=== PATIENT | male | born 1940 | race Caucasian/White ===

== ENCOUNTER 2018-10-10 09:23 | Inpatient (IN) | payer MEDICARE, OTHER ==
[~2018-10-10] VITALS: Ht 182.9 cm; Wt 122.5 kg
[2018-10-10 10:02] LABS: Basophils # (auto) 0.1 uL; Basophils % (auto) 0.5 % (0.0-2.0); Eosinophils # (auto) 0 uL; Hematocrit 42.5 % (41.0-53.0); Hemoglobin 14.3 g/dL (13.5-17.5); Lymphocytes # (auto) 1.8 uL; Lymphocytes % (auto) 12.7 % (10.0-50.0); Mean Corpuscular Hgb Conc. 33.7 g/dL (32.0-36.0); Mean Corpuscular Volume 86.2 fL (80.0-100.0); Monocytes # (auto) 0.8 uL; Monocytes % (auto) 5.7 % (0.0-12.0); Neutrophils # (auto) 11.6 uL; Neutrophils % (auto) 81.1 % (37.0-80.0); Platelet Count (auto) 166 10^3/uL (140-450); Red Blood Cells 4.93 10^6/uL (4.5-5.90); Red Cell Distribution Width 16.1 % (11.8-14.3); White Blood Cell 14.4 10^3/uL (4.4-10.8)
[2018-10-10] MEDS ORDERED: SODIUM CHLORIDE 0.9% 1,000 ML IV ONE ×2 (10:13→11:25)
[2018-10-10 10:24] LABS: INR 1.11 (0.9-1.15); Partial Thromboplastin Time 29.5 sec (23.64-32.05)
[2018-10-10 10:47] LABS: Albumin 3.2 g/dL (3.4-5.0); BUN/Creatinine Ratio 10.9; Calcium 8.8 mg/dL (8.5-10.1); Magnesium 1.6 mg/dL (1.6-2.6); Potassium 4.4 mmol/L (3.5-5.1)
[2018-10-10 10:50] LABS: Urine Bacteria NONE SEEN /hpf (None Seen); Urine Blood Negative /uL (Negative); Urine Specific Gravity 1.025 (1.001-1.035); Urine WBC 8 /hpf (0 - 3)
[2018-10-10 10:51] LABS: Bilirubin, Total 1.3 mg/dL (0.2-1.0)
[2018-10-10] MEDS ORDERED: SODIUM CHLORIDE 0.9% 500 ML IVB ONE (11:25)
[2018-10-10] MEDS ORDERED: HYDROmorphone HCL 2 MG/ML VL IV ONE (11:30)
[2018-10-10] MEDS ORDERED: PROMETHAZINE HCL 25 MG/ML 1ML IV PRN (11:30)
[2018-10-10] MEDS ORDERED: metroNIDAZOLE 500MG/100ML 100 ML IV ONE (11:30)
[2018-10-10] MEDS ORDERED: cefTRIAXone 1GM/50ML D5W 50 ML IV ONE ×2 (11:30→13:15)
[2018-10-10 12:28] LABS: Lactic Acid w/Reflex 2.4 mmol/L (0.4-2.0)
[2018-10-10] MEDS ORDERED: BENZOCAINE (DENTAL) 20 % SPRAY 60ML MT ONE (13:00)
[2018-10-10] MEDS ORDERED: MORPHINE SULF INJ 2 MG/ML SYRINGE 1ML IV PRN (13:15)
[2018-10-10] MEDS ORDERED: DEXTROSE (50%) 50ML SYRG IV PRN (13:15)
[2018-10-10] MEDS ORDERED: SODIUM CHLORIDE 0.9% 1,000 ML IV SCH (13:15)
[2018-10-10] MEDS ORDERED: NITROGLYCERIN 0.4 MG SL TAB SL PRN (13:15)
[2018-10-10] MEDS ORDERED: ONDANSETRON HCL 4 MG/2 ML VIAL IV PRN (13:15)
[2018-10-10] MEDS ORDERED: FAMOTIDINE (10MG/ML) 2ML VL IV ONE (14:00)
[2018-10-10] MEDS: metroNIDAZOLE 500MG/100ML 100 ML IV SCH ×2 (14:00→21:55)
--- NOTE | 2018-10-10 16:01 | NUR ---
Telemetry admit from ER ELLI GOMEZ admitted to Telemetry unit after SBAR received. Patient oriented to Ngozi Gregory, primary RN, unit, room, bed, and unit policies regarding patient care and visiting hours. Patient now on continuous telemetry monitoring, tele box # [id number] and telemetry reading on arrival to unit is . Patient weighed by bedscale and encouraged to call if they need something. All questions and concerns addressed, patient verbalized understanding. Note:
[2018-10-10] MEDS: ACCU-CHEK COMFORT CURVE STRIP VI SCH (16:44)
[2018-10-10] MEDS: SODIUM CHLORIDE 0.9% 1,000 ML IV SCH (16:44)
[2018-10-10 16:46] VITALS: BP 136/77
[2018-10-10 16:53] VITALS: BP 136/77
[2018-10-10] MEDS: InsuLIN REG 1unit/0.01ml Soln (100units/ml) SC SCH (16:57)
--- NOTE | 2018-10-10 18:00 | NUR ---
Attempted to place NG tube. Was unable to get pass resistance. Patient stated "Take this out, it not going to work." Educated patient on the need for the NG tube. Patient agreed to another attempt at a later time.
--- NOTE | 2018-10-10 19:59 | NUR ---
Opening Shift Note Assumed care of patient, awake and alert. No S/S of distress/SOB or pain. Instructed on POC and to call for assist PRN, will continue to monitor for changes Q1hr and PRN.
[2018-10-10] MEDS: HYDROmorphone HCL 2 MG/ML VL IV PRN (20:52)
[2018-10-10] MEDS: cefTRIAXone 1GM/50ML D5W 50 ML IV SCH (20:58)
--- NOTE | 2018-10-10 21:30 | NUR ---
Reattempted to place NG tube, not successful. Patient refuses any more tries.
[2018-10-10 21:42] VITALS: BP 142/78
[2018-10-10] MEDS: FAMOTIDINE (10MG/ML) 2ML VL IV SCH (21:55)
--- NOTE | 2018-10-10 22:00 | NUR ---
[facility] Hospitalist Spoke with Zoe Patel and informed her about the fail attempted of the NG tube. Hospitalist said leave it as is because patient refused any more tries.
[2018-10-11] MEDS: ACCU-CHEK COMFORT CURVE STRIP VI SCH ×5 (00:37→23:50)
[2018-10-11] MEDS: SODIUM CHLORIDE 0.9% 1,000 ML IV SCH ×2 (02:10→16:58)
[2018-10-11] MEDS: HYDROmorphone HCL 2 MG/ML VL IV PRN ×4 (02:33→22:57)
--- NOTE | 2018-10-11 02:35 | NUR ---
D/C RH IV. IV came off as the patient was sleeping.
[2018-10-11 05:00] VITALS: BP 144/66
[2018-10-11] MEDS: metroNIDAZOLE 500MG/100ML 100 ML IV SCH ×3 (05:34→21:37)
[2018-10-11] MEDS: InsuLIN REG 1unit/0.01ml Soln (100units/ml) SC SCH ×5 (05:47→23:50)
--- NOTE | 2018-10-11 05:50 | NUR ---
I ask patient if he will like to retry the NG tube, patient refused any NG further attempts.
[2018-10-11 07:23] LABS: Basophils # (auto) 0 uL; Basophils % (auto) 0.2 % (0.0-2.0); Eosinophils # (auto) 0.1 uL; Eosinophils % (auto) 0.7 % (0.0-7.0); Hematocrit 37.6 % (41.0-53.0); Hemoglobin 12.7 g/dL (13.5-17.5); Lymphocytes # (auto) 1.5 uL; Lymphocytes % (auto) 16.3 % (10.0-50.0); Mean Corpuscular Hemoglobin 29.7 pg (28.0-32.0); Mean Corpuscular Hgb Conc. 33.9 g/dL (32.0-36.0); Mean Corpuscular Volume 87.6 fL (80.0-100.0); Monocytes # (auto) 0.7 uL; Monocytes % (auto) 7.3 % (0.0-12.0); Neutrophils % (auto) 75.5 % (37.0-80.0); Platelet Count (auto) 130 10^3/uL (140-450); Red Blood Cells 4.29 10^6/uL (4.5-5.90); Red Cell Distribution Width 15.8 % (11.8-14.3); White Blood Cell 9.3 10^3/uL (4.4-10.8)
[2018-10-11 07:32] LABS: INR 1.1 (0.9-1.15)
[2018-10-11 07:37] LABS: Potassium 4.3 mmol/L (3.5-5.1)
[2018-10-11 07:42] LABS: Albumin 2.6 g/dL (3.4-5.0); BUN/Creatinine Ratio 14.1; Bilirubin, Total 0.8 mg/dL (0.2-1.0); Calcium 8.2 mg/dL (8.5-10.1); Total Protein 7.4 g/dL (6.4-8.2)
[2018-10-11] MEDS: FAMOTIDINE (10MG/ML) 2ML VL IV SCH ×2 (08:29→21:36)
[2018-10-11] MEDS: cefTRIAXone 1GM/50ML D5W 50 ML IV SCH ×2 (08:29→21:04)
[2018-10-11 09:00] VITALS: BP 122/74
[2018-10-11] MEDS ORDERED: BENZOCAINE (DENTAL) 20 % SPRAY 60ML MT ONE (12:30)
[2018-10-11 13:00] VITALS: BP 112/63
[2018-10-11] MEDS ORDERED: MAGNESIUM SULFATE 1GM/100ML 100 ML IV ONE (13:15)
--- NOTE | 2018-10-11 16:21 | NUR ---
Nasogastric tube insertion Patient educated on need for NG tube. All questions addressed. NGT inserted per MD order. Placement verified by aspiration of stomach contents, auscultation and chest xray.
--- NOTE | 2018-10-11 16:38 | NUR ---
NG tube placement confirmed. Patient placed on LCS per MD order.
[2018-10-11 17:00] VITALS: BP 146/61
[2018-10-11] MEDS ORDERED: D5W/SOD CHLO 0.9% 1,000 ML IV SCH (18:30)
[2018-10-11 21:57] VITALS: BP 139/57
[2018-10-12] MEDS: HYDROmorphone HCL 2 MG/ML VL IV PRN (01:43)
[2018-10-12 05:24] VITALS: BP 142/60
[2018-10-12] MEDS: InsuLIN REG 1unit/0.01ml Soln (100units/ml) SC SCH ×3 (05:44→17:42)
[2018-10-12] MEDS: metroNIDAZOLE 500MG/100ML 100 ML IV SCH ×3 (05:44→21:47)
[2018-10-12] MEDS: ACCU-CHEK COMFORT CURVE STRIP VI SCH ×3 (05:45→17:42)
[2018-10-12 07:14] LABS: Basophils # (auto) 0 uL; Basophils % (auto) 0.4 % (0.0-2.0); Eosinophils # (auto) 0.1 uL; Eosinophils % (auto) 1.2 % (0.0-7.0); Lymphocytes # (auto) 0.9 uL; Lymphocytes % (auto) 13.9 % (10.0-50.0); Mean Corpuscular Hemoglobin 29.9 pg (28.0-32.0); Mean Corpuscular Hgb Conc. 34.1 g/dL (32.0-36.0); Mean Corpuscular Volume 87.6 fL (80.0-100.0); Monocytes # (auto) 0.5 uL; Monocytes % (auto) 6.8 % (0.0-12.0); Neutrophils # (auto) 5.2 uL; Neutrophils % (auto) 77.7 % (37.0-80.0); Platelet Count (auto) 142 10^3/uL (140-450); Red Blood Cells 4.34 10^6/uL (4.5-5.90); Red Cell Distribution Width 15.6 % (11.8-14.3); White Blood Cell 6.7 10^3/uL (4.4-10.8)
[2018-10-12 07:18] LABS: Albumin 2.7 g/dL (3.4-5.0); Calcium 8.4 mg/dL (8.5-10.1); Magnesium 2.1 mg/dL (1.6-2.6); Potassium 4.9 mmol/L (3.5-5.1)
[2018-10-12 07:21] LABS: BUN/Creatinine Ratio 14.6; Bilirubin, Total 0.8 mg/dL (0.2-1.0); Total Protein 7.9 g/dL (6.4-8.2)
--- NOTE | 2018-10-12 08:00 | NUR ---
Opening Shift Note: Assumed care of patient, patient is asleep. No S/S of distress/SOB or pain. Bed in lowest locked position, side rails up x2, call light within reach. Will discuss POC with patient. Will continue to monitor for changes q1hr, and PRN.
[2018-10-12 08:30] VITALS: BP 124/62
[2018-10-12] MEDS: cefTRIAXone 1GM/50ML D5W 50 ML IV SCH ×2 (09:11→21:02)
[2018-10-12] MEDS: FAMOTIDINE (10MG/ML) 2ML VL IV SCH (09:12)
[2018-10-12 12:30] VITALS: BP 123/63
[2018-10-12] MEDS ORDERED: PANTOPRAZOLE 40 MG/10 ML VIAL INJ IV ONE (12:45)
--- NOTE | 2018-10-12 12:57 | NUR ---
Nutrition Assessment Notes please see attached link for complete assessment Est. Needs ABW 101 [id number] kcal (20-23 kcal/kg), 80-101 g protein (0.8-1.0 g/kg r/t elev T). Will continue to monitor pertinent labs and reassess nutrient need prn. Addendum: 10/12/18 at [address] Amended: Links added.
--- NOTE | 2018-10-12 15:15 | NUR ---
Paged Dr. Benites, instructed to page Dr. Viera. Paged Dr. Viera. Per doctor [facility], [place] NG tube. Patient is able to have ice chips.
--- NOTE | 2018-10-12 15:50 | NUR ---
NGT removal: NGT removed per MD order following explanation and instruction to patient. Patient verbalized understanding prior to removal. Patient tolerated well.
[2018-10-12 17:15] VITALS: BP 135/67
--- NOTE | 2018-10-12 17:45 | NUR ---
IV insertion: IV access obtained, via clean sterile technique by inserting 22 gauge catheter at right hand after 2 attempt. IV secured properly. No trauma to site. Patient tolerated well.
--- NOTE | 2018-10-12 18:02 | NUR ---
IV removal IV DC'd with clean sterile technique, catheter fully intact. Pressure dressing applied to site. Patient tolerated well.
[2018-10-12] MEDS: D5W/SOD CHLO 0.9% 1,000 ML IV SCH (18:08)
--- NOTE | 2018-10-12 20:00 | NUR ---
OPENING SHIFT NOTE: PATIENT IS RESTING IN BED. HE IS AO X4. HAS NO COMPLAINTS OF PAIN. HE IS AMBULATORY WITHOUT ASSISTANCE. HE IS TOLERATING ICE CHIPS WELL AFTER THE NG TUBE REMOVAL. BED IS LOCKED IN THE LOWEST POSITION WITH SIDE RAILS UP X 2. CALL LIGHT IS WITHIN REACH. WILL CONTINUE TO MONITOR.
[2018-10-12] MEDS: PANTOPRAZOLE 40 MG/10 ML VIAL INJ IV SCH (21:47)
[2018-10-12 21:51] VITALS: BP 138/67
[2018-10-13] MEDS: InsuLIN REG 1unit/0.01ml Soln (100units/ml) SC SCH ×2 (00:07→06:32)
[2018-10-13] MEDS: ACCU-CHEK COMFORT CURVE STRIP VI SCH ×2 (00:07→06:32)
--- NOTE | 2018-10-13 04:20 | NUR ---
PATIENT ASKED TO SPEAK WITH ME AND HE EXPLAINED TO ME THAT HE RICCARDO LIKE TO SEE THE DOCTOR TODAY. HE STATED "REGARDLESS IF I SEE THE DOCTOR OR NOT I WILL SIGN MY SELF OUT LATER TODAY". I REVIEWED HIS POTENTIAL DECISION WITH HIM AND HE CONFIRMS THAT GHE WILL SIGN AMA LATER TODAY IF NOT DISCHARGED. I NOTIFIED CHARGE NURSE OF HIS PENDING DECISION.
[2018-10-13 05:04] VITALS: BP 143/75
[2018-10-13] MEDS: D5W/SOD CHLO 0.9% 1,000 ML IV SCH (05:25)
[2018-10-13] MEDS: metroNIDAZOLE 500MG/100ML 100 ML IV SCH (06:00)
[2018-10-13 06:24] LABS: Basophils # (auto) 0 uL; Basophils % (auto) 0.5 % (0.0-2.0); Eosinophils # (auto) 0.3 uL; Eosinophils % (auto) 4.7 % (0.0-7.0); Hematocrit 38.7 % (41.0-53.0); Lymphocytes # (auto) 1.3 uL; Lymphocytes % (auto) 20.8 % (10.0-50.0); Mean Corpuscular Hemoglobin 29.4 pg (28.0-32.0); Mean Corpuscular Hgb Conc. 33.6 g/dL (32.0-36.0); Mean Corpuscular Volume 87.5 fL (80.0-100.0); Monocytes # (auto) 0.5 uL; Monocytes % (auto) 7.3 % (0.0-12.0); Neutrophils # (auto) 4.3 uL; Neutrophils % (auto) 66.7 % (37.0-80.0); Platelet Count (auto) 163 10^3/uL (140-450); Red Blood Cells 4.42 10^6/uL (4.5-5.90); Red Cell Distribution Width 15.6 % (11.8-14.3); White Blood Cell 6.4 10^3/uL (4.4-10.8)
[2018-10-13 06:49] LABS: Calcium 8.5 mg/dL (8.5-10.1); Potassium 4.1 mmol/L (3.5-5.1)
[2018-10-13 06:52] LABS: BUN/Creatinine Ratio 11.7; Phosphorus 2.6 mg/dL (2.5-4.90)
[2018-10-13 09:00] VITALS: BP 109/67
[2018-10-13] MEDS: cefTRIAXone 1GM/50ML D5W 50 ML IV SCH (09:00)
[2018-10-13] MEDS: PANTOPRAZOLE 40 MG/10 ML VIAL INJ IV SCH (10:00)
--- NOTE | 2018-10-13 10:30 | NUR ---
AMA Note ELLI GOMEZ states they want to leave the hospital Against Medical Advice (AMA). Patient encouraged to stay for further treatment/stabilization. Hospitalist to be informed. Patient advised of the risks and benefits of leaving AMA. Patient verbalized understanding. Patient encouraged to return to the ER if symptoms do not improve or worsen. IV dc'd to right hand, with canula intact. satellite project site monitor returned to ICU. Pt states that he has all personal belongings at time of discharge.
== END 2018-10-13 10:30 | disposition left against medical advice (07) | DRG 871 ==
LOC: ER 09:30 → TELE 09:31 → TELE-CENTR 15:52
PROVIDERS: ADMIT Nurse Practitioner Acute Care; ATTEND Internal Medicine
PROC: 0D9670Z Drainage of Stomach with Drainage Device, Via Natural or Artificial Opening (ICD-10-PCS; principal; 2018-10-11)
DX: A41.9 Sepsis, unspecified organism (principal); N17.0 Acute kidney failure with tubular necrosis; K63.1 Perforation of intestine (nontraumatic); E44.1 Mild protein-calorie malnutrition; I25.10 Atherosclerotic heart disease of native coronary artery without angina pectoris; E11.21 Type 2 diabetes mellitus with diabetic nephropathy; I71.4 Abdominal aortic aneurysm, without rupture; Z68.36 Body mass index [BMI] 36.0-36.9, adult; E78.5 Hyperlipidemia, unspecified; Z53.21 Procedure and treatment not carried out due to patient leaving prior to being seen by health care provider; K57.30 Diverticulosis of large intestine without perforation or abscess without bleeding; I10 Essential (primary) hypertension; J43.9 Emphysema, unspecified; N40.0 Benign prostatic hyperplasia without lower urinary tract symptoms; Z77.090 Contact with and (suspected) exposure to asbestos; Z85.828 Personal history of other malignant neoplasm of skin; Z95.5 Presence of coronary angioplasty implant and graft; Z79.84 Long term (current) use of oral hypoglycemic drugs
CPT/HCPCS: 36415; 71045; 71046; 74018; 74176; 80048; 80053; 81001; 82306; 82962; 83036; 83605; 83690; 83735; 84100; 84484; 85025; 85610; 85730; 86850; 86900; 86901; 87040; 93005; 93306; 94761; 96361; 96365; 96367; 96375; C9113; G0378; J0696; J1815; J2405; J3490